=== PATIENT | male | born 1995 | race Hispanic/Latino ===

== ENCOUNTER 2024-07-21 01:11 | Emergency (ER) | payer SELFPAY ==
[~2024-07-21] VITALS: Ht 180.3 cm; Wt 77.1 kg
--- NOTE | 2024-07-21 01:48 | NUR ---
ENTERED ROOM TO ASSESS PATIENT, PATIENT BUSY SPEAKING ON HIS CELL PHONE, IGNORED ER NURSING STAFF TO CONTINUE SPEAKING ON CELL.
[2024-07-21 02:18] LABS: BASOPHILS # (AUTO) 0.04 K/uL (0.00-0.20); BASOPHILS % (AUTO) 0.2 % (0.0-5.0); EOSINOPHILS # (AUTO) 0.01 K/uL (0.00-0.70); EOSINOPHILS % (AUTO) 0.1 % (0.0-8.0); HEMATOCRIT 49.6 % (42-54); IMMATURE GRANULOCYTE ABSOLUTE 0.07 K/uL (0-1); LYMPHOCYTES # (AUTO) 0.3 K/uL (1.0-4.8); LYMPHOCYTES % (AUTO) 1.8 % (21.0-51.0); MEAN CORPUSCULAR HEMOGLOBIN 30.1 pg (27.0-33.0); MEAN CORPUSCULAR HGB CONC 34.7 g/dL (32.0-36.0); MEAN CORPUSCULAR VOLUME 86.9 fL (79-99); MONOCYTES # (AUTO) 0.6 K/uL (0.1-1.0); MONOCYTES % (AUTO) 3.5 % (3.0-13.0); NEUTROPHILS # (AUTO) 15.3 K/uL (1.8-7.7); PLATELET COUNT (AUTO) 148 K/uL (130-400); RED BLOOD CELL COUNT(AUTO) 5.71 MIL/uL (4.50-6.20); RED CELL DISTRIBUTION WIDTH 12.1 % (11.0-15.5); WHITE BLOOD COUNT (AUTO) 16.3 K/uL (4.8-10.8)
[2024-07-21 02:20] LABS: APPEARANCE,URINE CLEAR (CLEAR); BILIRUBIN,URINE NEGATIVE (NEGATIVE); COLOR,URINE YELLOW (YELLOW); GLUCOSE, URINE (UA) NEGATIVE (NEGATIVE); KETONES,URINE 20 mg/dL (NEGATIVE); LEUKOCYTE ESTERASE ,URINE NEGATIVE Leu/uL (NEGATIVE); NITRATE,URINE NEGATIVE (NEGATIVE); OCCULT BLOOD,URINE SMALL (NEGATIVE); PH,URINE 5.5 (5.0-8.0); PROTEIN,URINE 50 mg/dL (NEGATIVE); UROBILINOGEN,URINE 0.2 mg/dL (0.2-1.0)
[2024-07-21 02:21] LABS: ADD UA MICROSCOPIC YES
[2024-07-21 02:24] LABS: BACTERIA,URINE FEW /HPF (None Seen); MUCUS,URINE MANY LPF (None Seen); SQUAMOUS EPITHELIAL CELL,UR RARE /HPF (0-2); WBC,URINE 0-1 /HPF (0-1)
[2024-07-21 02:33] LABS: CREATININE 1.2 mg/dL (0.5-1.3); POTASSIUM 4.3 mmol/L (3.5-5.1)
[2024-07-21 02:39] LABS: BILIRUBIN,DIRECT 0.1 mg/dL (0.0-0.3); BILIRUBIN,TOTAL 0.7 mg/dL (0.2-1.0); TOTAL PROTEIN, SERUM 9.5 g/dL (6.0-8.3)
[2024-07-21] MEDS ORDERED: ONDA-243 PO (03:13)
[2024-07-21] MEDS ORDERED: METR375C2 PO (03:13)
[2024-07-21] MEDS ORDERED: FAMO-136 PO (03:13)
--- NOTE | 2024-07-21 03:15 | ERN ---
General Chief Complaint: Abdominal Pain Stated Complaint: C/O ABD PAIN WITH N X V X DIARRHEA, BACK PAIN, FEV Time Seen by MD: 01:56 Time Seen by Midlevel: 01:56 Source: patient History of Present Illness Initial Comments Patient is a 29-year-old male with no significant past medical history presenting to the emergency department for evaluation of nausea, vomiting, diarrhea that started earlier today. He reports a low-grade fever at home. Patient states his symptoms started at approximately 6:00 p.m.. He does report working at a [employer] and reports eating leftover food. His family members are sick with similar symptoms. Allergies: Coded Allergies: No Known Allergies (Unverified Allergy, Unknown, 07/21/24) Past Medical History Past Medical History: No Pertinent History Past Surgical History: None ROS Dictation CONSTITUTIONAL: Negative except for HPI HEAD/FACE: Negative except for HPI EENT: Negative except for HPI RESPIRATORY: Negative except for HPI GASTROINTESTINAL/ABDOMINAL: Negative except for HPI GENITOURINARY: Negative except for HPI MUSCULOSKELETAL: Negative except for HPI INTEGUMENTARY: Negative except for HPI NEUROLOGICAL/PSYCH: Negative except for HPI HEMATOLOGIC/LYMPHATIC: Negative except for HPI All Systems Negative, Except as noted above. 13 point review of systems assessed and all negative except for above. Physical Exam Physical Exam Dictation Vital Signs reviewed General Appearance: Alert, oriented x 3, no acute distress, well developed, nou rished. Head and Face: non-traumatic. Eyes: PERRL, pink conjunctivas, eyelid no trauma, anterior chamber with arcus senilis. Ears: Pinnas intact and no signs of trauma or erythema ear canals clear and no discharge TM no erythema Nose: No discharge, no bleeding. Oropharynx: Mouth normal, tongue pink, pharynx clear,no erythema, tonsils no exudates, no abscesses noted, mucous me mbrane moist Neck: Supple, non-tender, no thyromegaly, no masses, no JVD, no bruits Breast:Deferred Chest:No tenderness, no crepitus, no paradoxical movement, no retractions Lungs:Clear, well-ventilated, symmetric, no rales, no wheezing, no rhonchi, no stridor, good breath sounds bilaterally Heart: Regular rate, regular rhythm, no murmur, no gallops Vascular: no peripheral edema, Abdomen: Soft, positive bowel sounds, nondistended, no guarding, nontender, no rebound, no masses no hepatomegaly, no splenomegaly, no Larkin's sign, no hernias. Rectal: Deferred Genital: Deferred Neurological: Normal speech, motor function intact, sensory function intact Musculoskeletal: Neck nontender, full range of motion, back nontender, full range of motion, Extremities: nontender, full range of motion Skin: Color pink, dry, no turgor, no rash, no lacerations, no abrasions, no contusions. Lymphatic: Deferred Results Laboratory and Microbiology Lab and Micro Result Laboratory Tests Test 07/21/24 01:46 07/21/24 02:11 Urine Color YELLOW (YELLOW) Urine Appearance CLEAR (CLEAR) Urine pH 5.5 (5.0-8.0) Urine Specific [place] 1.037 (1.001-1.031) Urine Protein 50 mg/dL (NEGATIVE) H Urine Glucose (UA) NEGATIVE mg/dL (NEGATIVE) Urine Ketones 20 mg/dL (NEGATIVE) H Urine Occult Blood SMALL (NEGATIVE) H Urine Nitrate NEGATIVE (NEGATIVE) Urine Bilirubin NEGATIVE mg/dL (NEGATIVE) Urine Urobilinogen 0.2 mg/dL (0.2-1.0) Urine Leukocyte Esterase NEGATIVE Jose/uL Urine RBC 2-5 /HPF (0-1) H Urine WBC 0-1 /HPF (0-1) Urine Squamous Epithelial Cells RARE /HPF (0-2) Urine Bacteria FEW /HPF (None Seen) White Blood Count 16.3 K/uL (4.8-10.8) H Red Blood Count 5.71 MIL/uL (4.50-6.20) Hemoglobin 17.2 g/dL (14.0-18.0) Hematocrit 49.6 % (42-54) Mean Corpuscular Volume 86.9 fL (79-99) Mean Corpuscular Hemoglobin 30.1 pg (27.0-33.0) Mean Corpuscular Hemoglobin Concent 34.7 g/dL (32.0-36.0) Red Cell Distribution Width 12.1 % (11.0-15.5) Platelet Count 148 K/uL (130-400) Mean Platelet Volume 11.2 fL (7.5-10.5) H Immature Granulocyte % (Auto) 0.4 % (0-1) Neutrophils (%) (Auto) 94.0 % (40.0-77.0) H Lymphocytes (%) (Auto) 1.8 % (21.0-51.0) L Monocytes (%) (Auto) 3.5 % (3.0-13.0) Eosinophils (%) (Auto) 0.1 % (0.0-8.0) Basophils (%) (Auto) 0.2 % (0.0-5.0) Neutrophils # (Auto) 15.3 K/uL (1.8-7.7) H Lymphocytes # (Auto) 0.3 K/uL (1.0-4.8) L Monocytes # (Auto) 0.6 K/uL (0.1-1.0) Eosinophils # (Auto) 0.01 K/uL (0.00-0.70) Basophils # (Auto) 0.04 K/uL (0.00-0.20) Absolute Immature Granulocyte (auto 0.07 K/uL (0-1) Nucleated Red Blood Cells 0.0 % (0.0-0.19) White Cell Morphology Comment See comments Sodium Level 140 mmol/L (136-145) Potassium Level 4.3 mmol/L (3.5-5.1) Chloride Level 102 mmol/L (101-111) Carbon Dioxide Level 27 mmol/L (21-32) Blood Urea Nitrogen 20 mg/dL (7-18) H Creatinine 1.2 mg/dL (0.5-1.3) Glomerular Filtration Rate Calc 84 mL/min (>90) Random Glucose 165 mg/dL (70-105) H Total Calcium 9.7 mg/dL (8.5-10.1) Total Bilirubin 0.7 mg/dL (0.2-1.0) Direct Bilirubin 0.1 mg/dL (0.0-0.3) Aspartate Amino Transf (AST/SGOT) 20 U/L (10-37) Alanine Aminotransferase (ALT/SGPT) 30 U/L (12-78) Alkaline Phosphatase 117 U/L (50-136) Total Protein 9.5 g/dL (6.0-8.3) H Albumin 5.0 g/dL (3.5-5.0) Lipase 14 U/L (16-77) L Labs Reviewed?: Yes MDM MDM: 29-year-old male presenting with nausea/vomiting/diarrhea that started a fter eating leftover food from a correction. On arrival with the patient is in no acute distress. He denies any abdominal pain. He reports family members are sick with similar symptoms. On physical examination patient was in no acute respiratory distress. Abdominal examination is unremarkable. Negative Larkin's, negative McBurney's. CBC shows leukocytosis with a left shift. His chemistries are stable. Labs are consistent with gastroenteritis. Patient was covered with a wound g of ceftriaxone IV in the emergency department and will be discharged home on Zofran, Pepcid, Flagyl. Return precautions discussed Differential diagnosis: Viral gastroenteritis, pancreatitis, acute cholelithiasis There are no social concerns with this patient. Prescription drug management Prescriptions will include: Zofran, Pepcid, Flagyl Medical management and examination interpretation discussions were had by me with other qualified healthcare professionals as indicated for the patient's care. ED Course Orders Procedure Category Date Status Time Cbc With Differential LAB 07/21/24 Complete 02:02 Basic Metabolic Panel LAB 07/21/24 Complete 02:02 Hepatic Function Panel LAB 07/21/24 Complete 02:02 Lipase LAB 07/21/24 Complete 02:02 Urinalysis Profile LAB 07/21/24 Complete 02:02 Ondansetron 4mg Inj PHA 07/21/24 Complete (Zofran 4mg Inj) 02:30 Famotidine 20mg Vial PHA 07/21/24 Complete (Pepcid 20mg Vial) 02:30 0.9%Nacl 1000ml (Ns PHA 07/21/24 Complete 1000ml) 02:30 Ceftriaxone 1g Vial PHA 07/21/24 Complete (Rocephine 1g Inj) 03:00 Current Medications Medications (Trade) Dose Ordered Sig/Dylan Route PRN Reason Start Time Stop Time Status Last Admin Dose Admin Ceftriaxone Sodium (ROCEphine 1G INJ) 1 gm ONCE ONCE IVPB 07/21/24 03:00 07/21/24 03:01 DC Famotidine (Pepcid 20mg Vial) 20 mg ONCE ONCE IV 07/21/24 02:30 07/21/24 02:31 DC Ondansetron HCl (zoFRAN 4MG INJ) 4 mg ONCE ONCE IVP 07/21/24 02:30 07/21/24 02:31 DC Sodium Chloride 1,000 ml @ 0 mls/hr ONCE ONCE IV 07/21/24 02:30 07/21/24 02:31 DC Vital Signs Date Time Temp Pulse Resp B/P (MAP) Pulse Ox O2 Delivery O2 Flow Rate FiO2 07/21/24 01:16 99.1 94 20 124/83 98 Room Air DX & DISP Disposition: Discharge Departure Impression: Primary Impression: Viral gastroenteritis Additional Impression: Leukocytosis Condition: Stable Scripts Metronidazole (Flagyl) 375 Mg Capsule 1 CAP PO BID for 5 Days, #10 CAP 0 Refills Prov: WILLIAM ALTAMIRANO 07/21/24 Famotidine (Pepcid) 20 Mg Tablet 1 TAB PO BID for 10 Days, #20 TAB 0 Refills Prov: WILLIAM ALTAMIRANO 07/21/24 Ondansetron (Ondansetron Odt) 4 Mg Tab.rapdis 4 MG PO BID for 7 Days, #14 TAB Prov: WILLIAM ALTAMIRANO 07/21/24 Additional Instructions: Your blood work today shows an elevated white blood cell count which is consistent with viral gastroenteritis. The remainder of your blood work is unremarkable. You were given one dose of IV antibiotics in the emergency department. I have given you a prescription for Zofran and Pepcid which should help with any abdominal discomfort. I have also given you a prescription for oral antibiotics for outpatient management. Please follow up with your primary care doctor in 2-3 days for repeat evaluation. Referrals: SELF,REFERRAL (PCP) Time of Disposition: 03:12 I have reviewed the case, and I agree with, Diagnosis and Plan I performed the substantive portion of the visit. I have reviewed and personally made and approve the management plan that is documented in the note by myself or the ESMER. I acknowledge for responsibility for the patient's management plan. WILLIAM ALTAMIRANO Jul 21, 2024 03:15
[2024-07-21] MEDS: ondanSETRON 4MG INJ IVP ONE (03:28)
[2024-07-21] MEDS: cefTRIAXone 1G VIAL IVPB ONE (03:28)
[2024-07-21] MEDS: FAMOTIDINE 20MG VIAL IV ONE (03:28)
[2024-07-21] MEDS: 0.9%NACL 1000ML 1,000 ML IV ONE (03:29)
[2024-07-21 04:02] VITALS: BP 122/80; PULSE 90; RESP 17; TEMP 98.6; O2SAT 99
== END 2024-07-21 04:02 | disposition home or self-care (01) ==
LOC: EDH 01:11
DX: A08.4 Viral intestinal infection, unspecified (principal); D72.829 Elevated white blood cell count, unspecified
CPT/HCPCS: 36415; 80048; 80076; 81001; 83690; 85025; 96374; 96375; 99284; J0696; J2405; J3490; J7030